=== PATIENT | male | born 1990 | race Caucasian/White ===

== ENCOUNTER 2017-06-05 01:16 | Emergency (ER) | payer BC, OTHER ==
[~2017-06-05] VITALS: Ht 162.6 cm; Wt 65.8 kg
--- NOTE | 2017-06-05 02:17 | Diagnostic Imaging Report ---
CHEST 2 VIEWS, Technique: CHEST 2 VIEWS Comparison: None Clinical history: \S\CHEST PAIN AFTER SMOKING MARIJUANA \[id number] \S\[id number] \S\Y DISCUSSION: Normal appearance of the heart, mediastinum, lungs and pleural spaces. IMPRESSION: No acute abnormality Signed by: Dr Yoli Love MD on 06/05/2017 2:13 AM
[2017-06-05 02:25] VITALS: BP 104/67
== END 2017-06-05 02:30 | disposition home or self-care (01) ==
LOC: ER 01:16
DX: R07.89 Other chest pain (principal); F17.210 Nicotine dependence, cigarettes, uncomplicated; F12.90 Cannabis use, unspecified, uncomplicated
CPT/HCPCS: 71046; 93005; 99284

== ENCOUNTER 2019-08-23 21:29 | Emergency (ER) | payer BC ==
[~2019-08-23] VITALS: Ht 162.6 cm; Wt 65.8 kg
--- OUTSIDE RECORDS SUMMARY | 2019-08-23 21:32 | XMS REPORT ---
Author Author [facility] Organization [facility] Address Unknown Phone Unavailable Care Team Providers [employer] Hand Name Role Phone Taylor BAIRES Unavailable Unavailable Problems This patient has no known problems. Allergies, Adverse Reactions, Alerts This patient has no known allergies or adverse reactions. Medications This patient has no known medications. Results Test Description Test Time Test Comments Text Results Atomic Results Result Comments CHEST 2 VIEWS [place] [address] Patient Name: TIFFANI INMAN MR #: [id number] : 1990 Age/Sex: 26/M Req #: [id number] Adm Physician: Ordered by: YASMINE BAIRES MD Report #: [id number] Location: ER Room/Bed: Procedure: [id number] DX/CHEST 2 VIEWS Exam Date: 06/05/17 Exam Time: 147 REPORT STATUS: Signed CHEST 2 VIEWS, Technique: CHEST 2 VIEWS Comparison: None Clinical history: S CHEST PAIN AFTER SMOKING MARIJUANA S [id number] S 014 DISCUSSION: Normal appearance of the heart, mediastinum, lungs and pleural spaces. IMPRESSION: No acute abnormality Signed by: Dr Aster Love MD on 06/05/2017 2:13 AM Dictated By: ASTER LOVE MD 2 Transcribed By: HARSHA on 06/05/17212 COPY TO: YASMINE BAIRES MD
[2019-08-23] MEDS ORDERED: ASPIRIN 81 MG CHEW TAB PO ONE (21:45)
[2019-08-23] MEDS ORDERED: SODIUM CHLORIDE 0.9% 1000ML 1,000 ML IV ONE (21:45)
[2019-08-23 21:50] LABS: BASOPHILS # (AUTO) 0.1 (0.0-0.1); BASOPHILS % 0.6 % (0.0-1.0); EOSINOPHILS # (AUTO) 0.1 (0.0-0.4); EOSINOPHILS % 0.6 % (0.0-6.0); HEMATOCRIT 46.2 % (38.2-49.6); HEMOGLOBIN 16.1 g/dL (14.0-18.0); LYMPHOCYTES # (AUTO) 2.5 (1.0-3.2); LYMPHOCYTES % 29.3 % (18.0-39.1); MEAN CORPUSCULAR HEMOGLOBIN 28.7 pg (28-32); MEAN CORPUSCULAR HGB CONC 34.8 g/dL (31-35); MEAN CORPUSCULAR VOLUME 82.4 fL (81-99); MONOCYTES # (AUTO) 0.8 (0.2-0.8); MONOCYTES % 8.8 % (4.4-11.3); NEUTROPHILS # (AUTO) 5.2 (2.1-6.9); NEUTROPHILS % 60.5 % (38.7-80.0); PLATELET COUNT 262 x10e3/uL (140-360); RED BLOOD COUNT 5.61 x10e6/uL (4.3-5.7)
[2019-08-23 22:09] LABS: ALANINE AMINOTRANSFERASE 37 IU/L (0-55); ALBUMIN 4.3 g/dL (3.5-5.0); ALBUMIN/GLOBULIN RATIO 1.4 (0.8-2.0); ALKALINE PHOSPHATASE 76 IU/L (40-150); ANION GAP 14.7 mmol/L (8-16); BLOOD UREA NITROGEN 13 mg/dL (7-26); BUN/CREATININE RATIO 13 (6-25); CALCIUM 9.7 mg/dL (8.4-10.2); CARBON DIOXIDE 24 mmol/L (22-29); CHLORIDE 107 mmol/L (98-107); CREATINE KINASE 220 IU/L (30-200); CREATININE, SERUM 0.97 mg/dL (0.72-1.25); EST GLOMERULAR FILTRATION RATE > 60 ML/MIN (60-); GLUCOSE 103 mg/dL (74-118); POTASSIUM 3.7 mmol/L (3.5-5.1); SODIUM 142 mmol/L (136-145)
[2019-08-23] MEDS ORDERED: SODIUM CHLORIDE 0.9% 1000ML 1,000 ML ONE (22:34)
--- NOTE | 2019-08-23 23:07 | Diagnostic Imaging Report ---
EXAMINATION: CHEST SINGLE (PORTABLE) INDICATION: Palpitations COMPARISON: None FINDINGS: TUBES and LINES: None. LUNGS: Normal lung volumes. Lungs are clear. No consolidations. PLEURA: No pleural effusion or pneumothorax. HEART AND MEDIASTINUM: The cardiomediastinal silhouette is unremarkable. BONES AND SOFT TISSUES: No acute osseous lesion. Soft tissues are unremarkable. UPPER ABDOMEN: No free air under the diaphragm. IMPRESSION: No acute thoracic radiographic abnormality. Signed by: Jorge Olivas DO on 08/23/2019 11:04 PM
[2019-08-24] MEDS ORDERED: PANTOPRAZOLE 40 MG 10ML VIAL IV STA (00:27)
[2019-08-24 00:58] LABS: CREATINE KINASE MB 8.9 ng/mL (0-5.0)
[2019-08-24 01:05] VITALS: BP 123/77
== END 2019-08-24 01:12 | disposition home or self-care (01) ==
LOC: ER 21:29
DX: R00.2 Palpitations (principal); E86.0 Dehydration
CPT/HCPCS: 36415; 71045; 80053; 82550; 82553; 84484; 85025; 85379; 93005; 99283; C9113; J7030